=== PATIENT | female | born 1940 | race Caucasian/White ===

== ENCOUNTER 2016-09-14 16:47 | Emergency (ER) | payer OTHER, MEDICARE ==
--- NOTE | 2016-09-14 17:55 | DIAGNOSTIC IMAGING REPORT ---
PROCEDURE: CT HEAD WITHOUT CONTRAST INDICATION: Fall injury with occipital pain. TECHNIQUE: Noncontrast axial images with sagittal and coronal reformations. COMPARISON: Head CT 08/04/2014. FINDINGS: Sulci and ventricular system are normal. Minor white matter chronic ischemic changes. Left occipital scalp contusion. No evidence of acute intracranial process. Visualized mastoids and sinuses are clear. IMPRESSION: 1. Left occipital scalp contusion 2. Minor white matter chronic ischemic changes 3. Findings discussed with Dr. Good at 05:55 p.m., [facility] Time
--- NOTE | 2016-09-14 18:01 | DIAGNOSTIC IMAGING REPORT ---
PROCEDURE: CT CERVICAL SPINE W/O CONTRAST CLINICAL INDICATION: Fall injury. TECHNIQUE: Noncontrast axial images with sagittal and coronal reformations. COMPARISON: None. FINDINGS: Normal alignment without fracture. Moderate multilevel disc vertebral degenerative changes. Mild bilateral C3-4, moderate left C4-5, bilateral C5-6 and C6-7 foraminal stenosis. Mild C5-6 and C6-7 spinal stenosis. Paraspinal soft tissues are unremarkable. IMPRESSION: 1. No acute changes 2. Moderate degenerative changes with spinal and bilateral foraminal stenosis 3. Results discussed with Dr. Good All CT scans at this facility use dose modulation, iterative reconstruction, and/or weight-based dosing when appropriate to reduce radiation dose to as low as reasonably achievable.
--- NOTE | 2016-09-14 19:15 | ED ORDER SUMMARY ---
..... Patient: BECCA SERRA OrderSheet [facility] VisitID: [id number] [place] [address] 76y, F Registration Date/Time: 09/14/2016 ORDER SHEET Weight: 72.5 kg (stated) Allergies: Sulfa Antibiotics GENERAL ORDERS: CT Head wo Cont Urgent (17:30 09/14/2016 Fili ANNA) (Ack 17:32 Zach) (18:11 Mele R.N.) CT Cervical Spine wo Cont Urgent (17:30 09/14/2016 Fili ANNA) (Ack 17:32 Zach) (18:11 Mele R.N.) Cardiac Panel Stat (18:04 09/14/2016 Fili ANNA) (18:05 Zach) MEDICATION ORDERS: Zofran ODT PO 4 mg (NOW) (18:07 09/14/2016 Fili ANNA) (18:15 Mele R.N.) Oxycodone-APAP PO 5/325 mg (NOW) (18:07 09/14/2016 Fili ANNA) (18:15 Mele R.N.) Soma PO 350 mg (NOW) (18:07 09/14/2016 Fili ANNA) (18:16 Mele R.N.) IV FLUIDS: ORDER SHEET NOTES: [Electronically signed by Lianna Mclain R.N. (20:22 09/14/2016)] [Electronically signed by Patricia Carson (20:23 09/14/2016)] [Electronically signed by Jose Good MD (22:02 09/14/2016)] [Electronically locked/signed by Lianna Mclain R.N. (20:22 09/14/2016)]
--- NOTE | 2016-09-14 19:15 | ED NURSING NOTES ---
Clinical Report - Nurses [facility] [place] [address] 09/14/2016 16:52 Patient: BECCA SERRA TRIAGE Triage time 17:00 Sep 14 2016. Chief Complaint: INJURY TO HEAD. Alert. No acute distress. SHAVON COMA SCORE: Shavon Coma Scale: 15- eyes open spontaneously (4); best verbal response- oriented x 4 (5); best motor response- obeys commands (6). --17:12 Lianna Mclain R.N. 17:04 09/14/16. BP: 151/90. HR: 74. RR: 16. O2 saturation: 97%. Temp: 97.5 F. Pain level now: 11/16. --17:12 Lianna Mclain R.N. Weight: 72.5 kg stated. Height/Length: 64 inches Per Patient. BMI: 27.5. --17:10 Lianna Mclain R.N. Medications Oxybutynin Chloride Oral. --17:05 Lianna Mclain R.N. PROzac Oral 40mg, daily. --17:06 Lianna Mclain R.N. Allergy Oral. --17:06 Lianna Mclain R.N. Allergies Sulfa Antibiotics. --17:07 Lianna Mclain R.N. History Arrived by private vehicle. Historian: patient. Accompanied by friend. This occurred (sunday night). Mechanism of injury: fell. The patient had loss of consciousness. She has had a headache and neck pain. ( nausea). 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 Took ibuprofen. (chircopractor). PAST MEDICAL HX: Tetanus status: up-to-date. Immunizations: up-to-date. SOCIAL HX: Never smoker. Regular alcohol use; consumes three beers a week. History of occasional drug use: marijuana. No infectious disease exposure. SELF HARM ASSESSMENT: A self harm assessment was performed. The patient answered "no" to the question "Do you have thoughts of harming or killing yourself?". FALL RISK ASSESSMENT: Fall risk assessment completed. No fall risk identified. NUTRITIONAL RISK ASSESSMENT: The nutritional risk assessment revealed no deficiencies. FUNCTIONAL ASSESSMENT: Functional assessment: no impairments noted. LEARNING NEEDS ASSESSMENT: The learning needs assessment revealed no barriers. ABUSE ASSESSMENT: Abuse assessment: The patient was asked "Do you feel safe in your home?". SKIN INTEGRITY ASSESSMENT: Skin integrity risk assessment completed. No skin integrity risk identified. --17:12 Lianna Mclain R.N. PROBLEMS: Knee Injury. Abnormal Test. Paresthesia. Hypertension. URI. Bronchitis. Asthma. Dyspnea. Pancreatitis. Depression. --17:07 Lianna Mclain R.N. Diverticulitis. --17:08 Lianna Mclain R.N. ADDITIONAL SURGERIES: Breast Augmentation. Hysterectomy. Knee Surgery. --17:07 Lianna Mclain R.N. Colon surgery. Foot surgery. --17:08 Lianna Mclain R.N. Interventions ID band on patient. To room. --17:12 Lianna Mclain R.N. PHYSICAL ASSESSMENT GENERAL / NEURO / PSYCH: Alert. Oriented X 4. Appears in pain. HEENT: Head: tenderness and swelling present in the left occipital area. Occiput: tenderness of the left side of the occiput. No swelling. Pupils equal, round and reactive to light. CVS: Capillary refill less than 2 seconds. BACK: No neck or back tenderness. Limited ROM in the back- (stiffness). SKIN: Skin is warm. --17:14 Lianna Mclain R.N. NURSING PROGRESS NOTES Cold pack applied. Patient gowned. Head of bed elevated. Patient identifiers checked. Call light placed in reach. Side rails up x 1. Bed placed in lowest position. Brakes of bed on. --17:14 Lianna Mclain R.N. 17:44 09/14/2016 Site #1 started via IV in the right antecubital space with an 20g angiocath, with aseptic technique and good blood return; one attempt. Blood drawn: rainbow set. Labeled in the presence of the patient and sent to the lab. --17:44 Lianna Mclain R.N. 17:54 09/14/16. BP: 196/89. HR: 74. RR: 16. O2 saturation: 98%. Pain level now: 8/10. --17:56 Lianna Mclain R.N. 18:15 09/14/2016 Zofran ODT (Ondansetron) PO 4 mg given. Allergies verified and confirmed 5 rights. --18:15 Lianna Mclain R.N. 18:15 09/14/2016 Oxycodone-APAP (Oxycodone-Acetaminophen) PO 5/325 mg Tablets 1 tab given. Allergies verified, confirmed 5 rights and sedative warning given to the patient. --18:15 Lianna Mclain R.N. 18:16 09/14/2016 Soma (Carisoprodol) PO Tablets 350 mg given. Allergies verified, confirmed 5 rights and sedative warning given to the patient. --18:16 Lianna Mclain R.N. DISPOSITION / DISCHARGE 19:20 09/14/16. BP: 170/80. HR: 74. RR: 20. O2 saturation: 98% on room air. Temp: 98.1 F (oral). Pain level now: 0/10. --20:22 Patricia Carson 19:25 09/14/2016 Site #1 removed upon discharge. Catheter intact. Bandaid applied. --20:22 Patricia Carson 19:30 09/14/16. Condition at departure: stable. The goals identified in the patient's plan of care were met. No learning barriers present. Discharge instructions provided and reviewed with the patient. Reviewed warnings (Do not drive while on sedative medications). Reviewed medication(s) side effects, precautions, dosing and course information. Prescription(s) given to the patient. Reviewed need for increased fluid intake. Patient verbalized understanding. Written instructions provided in Lao. ( Follow up with your PCP in one week. Follow head injury precautions as discussed. Return if symptoms worsen. Ice and rest until well. Take an anti-inflammatory as needed to reduce swelling and inflammation. Patient verbalized understanding and had no additional questions at this time.). The patient was discharged by the physician. She was discharged home and accompanied by client relationship executive. She left the Emergency Department ambulatory and via private vehicle. Novelty Dipper driving. FALL RISK ASSESSMENT: Fall risk assessment completed. No fall risk identified. --20:22 Patricia Carson. Locked/Released at 09/14/2016 20:23 by Lianna Mclain R.N.
--- NOTE | 2016-09-14 19:15 | ED NURSING NOTES ---
Clinical Report - Nurses [facility] [place] [address] 09/14/2016 16:52 Patient: BECCA SERRA TRIAGE Triage time 17:00 Sep 14 2016. Chief Complaint: INJURY TO HEAD. Alert. No acute distress. SHAVON COMA SCORE: Shavon Coma Scale: 15- eyes open spontaneously (4); best verbal response- oriented x 4 (5); best motor response- obeys commands (6). --17:12 Lianna Mclain R.N. 17:04 09/14/16. BP: 151/90. HR: 74. RR: 16. O2 saturation: 97%. Temp: 97.5 F. Pain level now: 11/16. --17:12 Lianna Mclain R.N. Weight: 72.5 kg stated. Height/Length: 64 inches Per Patient. BMI: 27.5. --17:10 Lianna Mclain R.N. Medications Oxybutynin Chloride Oral. --17:05 Lianna Mclain R.N. PROzac Oral 40mg, daily. --17:06 Lianna Mclain R.N. Allergy Oral. --17:06 Lianna Mclain R.N. Allergies Sulfa Antibiotics. --17:07 Lianna Mclain R.N. History Arrived by private vehicle. Historian: patient. Accompanied by friend. This occurred (sunday night). Mechanism of injury: fell. The patient had loss of consciousness. She has had a headache and neck pain. ( nausea). 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 Took ibuprofen. (chircopractor). PAST MEDICAL HX: Tetanus status: up-to-date. Immunizations: up-to-date. SOCIAL HX: Never smoker. Regular alcohol use; consumes three beers a week. History of occasional drug use: marijuana. No infectious disease exposure. SELF HARM ASSESSMENT: A self harm assessment was performed. The patient answered "no" to the question "Do you have thoughts of harming or killing yourself?". FALL RISK ASSESSMENT: Fall risk assessment completed. No fall risk identified. NUTRITIONAL RISK ASSESSMENT: The nutritional risk assessment revealed no deficiencies. FUNCTIONAL ASSESSMENT: Functional assessment: no impairments noted. LEARNING NEEDS ASSESSMENT: The learning needs assessment revealed no barriers. ABUSE ASSESSMENT: Abuse assessment: The patient was asked "Do you feel safe in your home?". SKIN INTEGRITY ASSESSMENT: Skin integrity risk assessment completed. No skin integrity risk identified. --17:12 Lianna Mclain R.N. PROBLEMS: Knee Injury. Abnormal Test. Paresthesia. Hypertension. URI. Bronchitis. Asthma. Dyspnea. Pancreatitis. Depression. --17:07 Lianna Mclain R.N. Diverticulitis. --17:08 Lianna Mclain R.N. ADDITIONAL SURGERIES: Breast Augmentation. Hysterectomy. Knee Surgery. --17:07 Lianna Mclain R.N. Colon surgery. Foot surgery. --17:08 Lianna Mclain R.N. Interventions ID band on patient. To room. --17:12 Lianna Mclain R.N. PHYSICAL ASSESSMENT GENERAL / NEURO / PSYCH: Alert. Oriented X 4. Appears in pain. HEENT: Head: tenderness and swelling present in the left occipital area. Occiput: tenderness of the left side of the occiput. No swelling. Pupils equal, round and reactive to light. CVS: Capillary refill less than 2 seconds. BACK: No neck or back tenderness. Limited ROM in the back- (stiffness). SKIN: Skin is warm. --17:14 Lianna Mclain R.N. NURSING PROGRESS NOTES Cold pack applied. Patient gowned. Head of bed elevated. Patient identifiers checked. Call light placed in reach. Side rails up x 1. Bed placed in lowest position. Brakes of bed on. --17:14 Lianna Mclain R.N. 17:44 09/14/2016 Site #1 started via IV in the right antecubital space with an 20g angiocath, with aseptic technique and good blood return; one attempt. Blood drawn: rainbow set. Labeled in the presence of the patient and sent to the lab. --17:44 Lianna Mclain R.N. 17:54 09/14/16. BP: 196/89. HR: 74. RR: 16. O2 saturation: 98%. Pain level now: 8/10. --17:56 Lianna Mclain R.N. 18:15 09/14/2016 Zofran ODT (Ondansetron) PO 4 mg given. Allergies verified and confirmed 5 rights. --18:15 Lianna Mclain R.N. 18:15 09/14/2016 Oxycodone-APAP (Oxycodone-Acetaminophen) PO 5/325 mg Tablets 1 tab given. Allergies verified, confirmed 5 rights and sedative warning given to the patient. --18:15 Lianna Mclain R.N. 18:16 09/14/2016 Soma (Carisoprodol) PO Tablets 350 mg given. Allergies verified, confirmed 5 rights and sedative warning given to the patient. --18:16 Lianna Mclain R.N. DISPOSITION / DISCHARGE 19:20 09/14/16. BP: 170/80. HR: 74. RR: 20. O2 saturation: 98% on room air. Temp: 98.1 F (oral). Pain level now: 0/10. --20:22 Patricia Carson 19:25 09/14/2016 Site #1 removed upon discharge. Catheter intact. Bandaid applied. --20:22 Patricia Carson 19:30 09/14/16. Condition at departure: stable. The goals identified in the patient's plan of care were met. No learning barriers present. Discharge instructions provided and reviewed with the patient. Reviewed warnings (Do not drive while on sedative medications). Reviewed medication(s) side effects, precautions, dosing and course information. Prescription(s) given to the patient. Reviewed need for increased fluid intake. Patient verbalized understanding. Written instructions provided in Lebanese. ( Follow up with your PCP in one week. Follow head injury precautions as discussed. Return if symptoms worsen. Ice and rest until well. Take an anti-inflammatory as needed to reduce swelling and inflammation. Patient verbalized understanding and had no additional questions at this time.). The patient was discharged by the physician. She was discharged home and accompanied by fire fighters dispatcher. She left the Emergency Department ambulatory and via private vehicle. Csw driving. FALL RISK ASSESSMENT: Fall risk assessment completed. No fall risk identified. --20:22 Patricia Carson. Locked/Released at 09/14/2016 20:23 by Lianna Mclain R.N.
--- NOTE | 2016-09-14 19:15 | ED ORDER SUMMARY ---
..... Patient: BECCA SERRA OrderSheet [facility] VisitID: [id number] [place] [address] 76y, F Registration Date/Time: 09/14/2016 ORDER SHEET Weight: 72.5 kg (stated) Allergies: Sulfa Antibiotics GENERAL ORDERS: CT Head wo Cont Urgent (17:30 09/14/2016 Fili ANNA) (Ack 17:32 Zach) (18:11 Mele R.N.) CT Cervical Spine wo Cont Urgent (17:30 09/14/2016 Fili ANNA) (Ack 17:32 Zach) (18:11 Mele R.N.) Cardiac Panel Stat (18:04 09/14/2016 Fili ANNA) (18:05 Zach) MEDICATION ORDERS: Zofran ODT PO 4 mg (NOW) (18:07 09/14/2016 Fili ANNA) (18:15 Mele R.N.) Oxycodone-APAP PO 5/325 mg (NOW) (18:07 09/14/2016 Fili ANNA) (18:15 Mele R.N.) Soma PO 350 mg (NOW) (18:07 09/14/2016 Fili ANNA) (18:16 Mele R.N.) IV FLUIDS: ORDER SHEET NOTES: [Electronically signed by Lianna Mclain R.N. (20:22 09/14/2016)] [Electronically signed by Patricia Carson (20:23 09/14/2016)] [Electronically signed by Jose Good MD (22:02 09/14/2016)] [Electronically locked/signed by Lianna Mclain R.N. (20:22 09/14/2016)]
--- NOTE | 2016-09-14 19:15 | ED CLINICAL REPORT ---
Clinical Report - Physicians/Mid Levels [facility] [address] [place] [address] 09/14/2016 16:52 Patient: BECCA SERRA Time Seen: 17:00 Sep 14 2016. Arrived- By private vehicle. Historian- patient. CPT: ER phys charges level 4 (#[id number]). HISTORY OF PRESENT ILLNESS Location of injuries- head and neck. Chief Complaint: INJURY TO HEAD and INJURY TO NECK. 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 Fell down 2 stairs while walking and landed on a wood surface; tripped (walking in the dark). Occurred at home. The patient complains of moderate pain. The patient sustained a blow to the head, complains of neck pain and had loss of consciousness. REVIEW OF SYSTEMS No seizure, numbness, chest pain, difficulty breathing or laceration. No fever. All systems otherwise negative, except as recorded above. PAST HISTORY See nurses notes. Knee Injury. Abnormal Test. Paresthesia. Hypertension. URI. Bronchitis. Asthma. Dyspnea. Pancreatitis. Depression. --17:07 Lianna Mclain R.N. Diverticulitis. --17:08 Lianna Mclain R.N. ADDITIONAL SURGERIES: Breast Augmentation. Hysterectomy. Knee Surgery. --17:07 Lianna Mclain R.N. Colon surgery. Foot surgery. Medications: Allergy Oral. PROzac Oral 40mg, daily. Oxybutynin Chloride Oral. Allergies: Sulfa Antibiotics. SOCIAL HISTORY Regular alcohol use. History of drug use: marijuana. ADDITIONAL NOTES The nursing notes have been reviewed. PHYSICAL EXAM Vital Signs: 09/14/2016 17:04 BP: 151/90. HR: 74. RR: 16. O2 saturation: 97%. Temp: 97.5 F. Pain level now: 8/10. Appearance: Alert. Patient in mild distress. Head: Vertex: mild tenderness and swelling and small abrasion of the left posterior aspect of the vertex. Eyes: Pupils equal, round and reactive to light. EOM intact. ENT: No dental injury. Pharynx normal. Neck: Decrease in ROM. Mild vertebral tenderness of the mid cervical spine. No palpable step-off. CVS: Normal heart rate and rhythm. Heart sounds normal. Pulses normal. Respiratory: Breath sounds normal. Chest nontender. Abdomen: Soft and nontender. Back: No tenderness. Skin: Skin intact. Skin warm. Normal skin color. Extremities: Extremities atraumatic. Neuro: Oriented X 3. Mood/affect normal. Speech normal. No motor deficit. Normal gait. No sensory deficit. Reflexes normal. LABS, X-RAYS, AND EKG CT C-Spine: No acute findings. Degenerative joint disease. The study was independently viewed by me and interpreted by the radiologist. CT Head: No acute disease. Laboratory Tests: CBC w Diff: (TAZ: 09/14/2016 17:20) ( [facility] 09/14/2016 18:19) Final results Test Result Flag Units (Reference) WHITE BLOOD COUNT 5.8 K/uL (4.5-11.5) RED BLOOD COUNT 4.26 M/uL (4.00-5.20) HEMOGLOBIN 13.1 gm/dL (12.0-16.0) HEMATOCRIT 39.2 % (36.0-46.0) MEAN CELL VOLUME 92 fL (80-100) MEAN CORPUSCULAR HGB 31 pg (26-34) MEAN CORPUSCULAR HGB CONC 33 g/dL (31-37) RED CELL DISTRIBUTION WIDTH 15.2 H % (11.6-14.8) PLATELET COUNT 323 K/uL (150-400) NEUTROPHIL % 59.8 % (50-75) LYMPH % 29.9 % (25-40) MONO % 8.2 % (3-14) EOSINOPHIL % 1.7 % (0-4) BASOPHIL % 0.4 % (0-2) CHEM 13 PANEL: (TAZ: 09/14/2016 17:20) ( MsgRcvd 09/14/2016 18:38) Final results Test Result Flag Units (Reference) GLUCOSE 102 mg/dL (70-110) BUN 20 H mg/dL (7-18) CREATININE 0.9 mg/dL (0.6-1.3) Estimated GFR >60 mL/min Estimated GFR- >60 mL/min Note: Persistent reduction over 3 months in eGFR<60 mL/min/1.73 m2 defines CKD. Patients with eGFR values>=60 mL/min/1.73 m2 may also have CKD if evidence ofpersistent proteinuria. Additional information may be foundat www.kidney.org. SODIUM 140 mmol/L (136-145) POTASSIUM 3.9 mmol/L (3.5-5.1) CHLORIDE 104 mmol/L (98-107) CARBON DIOXIDE 26 mmol/L (21-32) CALCIUM 9.1 mg/dL (8.5-10.1) TOTAL PROTEIN 7.2 g/dL (6.4-8.2) ALBUMIN 3.3 g/dL (3.3-5.0) BILIRUBIN, TOTAL 0.2 mg/dL (0.0-1.0) ALKALINE PHOSPHATASE 91 U/L (46-116) AST (SGOT) 22 U/L (15-37) ALT (SGPT) 25 U/L (12-78) MAGNESIUM 2.1 mg/dL (1.8-2.4) CPK 92 U/L (24-260) TROPONIN I <0.05 ng/mL (0.00-1.5) TROPONIN REFERENCE RANGE:<0.1 NEGATIVE0.1-1.5 INDETERMINANT>1.5 POSITIVE . PROGRESS AND PROCEDURES Patient/family counseled. Disposition: Discharged. Condition: stable. CLINICAL IMPRESSION Single contusion with soft tissue hematoma and abrasion to the head. Fall from stairs and on same level by tripping. Concussion. Loss of consciousness of unknown duration. INSTRUCTIONS No strenuous activity. Warnings: SEDATIVE MEDICATION: You were given sedative medication during your visit. Do not drive or operate dangerous machinery. GENERAL WARNINGS: Return or contact your physician immediately if your condition worsens or changes unexpectedly, if not improving as expected, or if other problems arise. Prescription Medications: Zofran (orally disintegrating tablets) 4 mg: take 1 orally every 6 hours as needed for nausea. Dispense ten (10). No refill. Soma 350 mg: Take 1 orally every 6 hours as needed for muscle spasm. Dispense twenty (20). No refills. Substitution is permissible. Oxycodone/APAP 5 mg/325 mg: take 1 tablet orally every 6 hours as needed for pain. Dispense fifteen (15). No refills. Follow-up: Follow up with your doctor in one week. Call for an appointment. Understanding of the discharge instructions verbalized by patient and family. (Electronically signed by Jose Good MD 09/14/2016 22:02)
--- NOTE | 2016-09-14 22:02 | ED DISCHARGE INSTRUCTIONS ---
Patient: BECCA SERRA General Instructions [facility] VisitID: [id number] [place] [address] 76y, F Registration Date/Time: 09/14/2016 Single contusion with soft tissue hematoma and abrasion to the head. Fall from stairs and on same level by tripping. Concussion. Loss of consciousness of unknown duration. INSTRUCTIONS No strenuous activity. Warnings: SEDATIVE MEDICATION: You were given sedative medication during your visit. Do not drive or operate dangerous machinery. GENERAL WARNINGS: Return or contact your physician immediately if your condition worsens or changes unexpectedly, if not improving as expected, or if other problems arise. Prescription Medications: Zofran (orally disintegrating tablets) 4 mg: take 1 orally every 6 hours as needed for nausea. Dispense ten (10). No refill. Soma 350 mg: Take 1 orally every 6 hours as needed for muscle spasm. Dispense twenty (20). No refills. Substitution is permissible. Oxycodone/APAP 5 mg/325 mg: take 1 tablet orally every 6 hours as needed for pain. Dispense fifteen (15). No refills. Follow-up: Follow up with your doctor in one week. Call for an appointment. Understanding of the discharge instructions verbalized by patient and family. ADDITIONAL INFORMATION Mechanical Fall You have had a fall today. It appears that the cause is mechanical. That means that you slipped, tripped or lost your balance. If your fall had been due to fainting or a seizure, further tests would be required. Home Care: Rest today and resume your normal activities when you are feeling back to normal. If you were injured during the fall, follow the advice from your doctor regarding care of your injury. You may use acetaminophen (Tylenol) or ibuprofen (Motrin, Advil) to control pain, unless another pain medicine was prescribed. [NOTE: If you have chronic liver or kidney disease or ever had a stomach ulcer or GI bleeding, talk with your doctor before using these medicines.] Fall Prevention: Was there anything that caused your fall that can be fixed, removed, or replaced? Make your home safe by keeping walkways clear of objects you may trip over. Use non-slip pads under rugs. Do not walk in poorly lit areas. Do not stand on chairs or wobbly ladders. Use caution when reaching overhead or looking upward. This position can cause a loss of balance. Be sure your shoes fit properly, have non-slip bottoms and are in good condition. Be cautious when going up and down curbs, and walking on uneven sidewalks. If your balance is poor, consider using a cane or walker. Stay as active as you can. Balance, flexibility, strength, and endurance all come from exercise. They all play a role in preventing falls. Follow Up with your doctor or as advised by our staff. Get Prompt Medical Attention if any of the following occur: Repeated mechanical falls, or unexplained falls Dizziness, fainting or seizure Severe headache Chest pain or shortness of breath Palpitations (very rapid or very slow or irregular heartbeat) Blood in vomit, stools (black or red color) Weakness of an arm or leg or one side of the face Difficulty with speech or vision Ondansetron Oral disintegrating tablet What is this medicine? ONDANSETRON (on WILMAR se kelsey) is used to treat nausea and vomiting caused by chemotherapy. It is also used to prevent or treat nausea and vomiting after surgery. How should I use this medicine? These tablets are made to dissolve in the mouth. Do not try to push the tablet through the foil backing. With dry hands, peel away the foil backing and gently remove the tablet. Place the tablet in the mouth and allow it to dissolve, then swallow. While you may take these tablets with water, it is not necessary to do so. Talk to your dental office coordinator regarding the use of this medicine in children. Special care may be needed. What side effects may I notice from receiving this medicine? Side effects that you should report to your doctor or health live in caregiver as soon as possible: allergic reactions like skin rash, itching or hives, swelling of the face, lips, or tongue breathing problems dizziness fast or irregular heartbeat feeling faint or lightheaded, falls fever and chills swelling of the hands and feet tightness in the chest Side effects that usually do not require medical attention (report to your doctor or health live in caregiver if they continue or are bothersome): constipation or diarrhea headache What may interact with this medicine? Do not take this medicine with any of the following medications: -apomorphine -cisapride -dofetilide -dronedarone -pimozide -thioridazine -ziprasidone This medicine may also interact with the following medications: -carbamazepine -phenytoin -rifampicin -tramadol -other medicines that prolong the QT interval (cause an abnormal heart rhythm) What if I miss a dose? If you miss a dose, take it as soon as you can. If it is almost time for your next dose, take only that dose. Do not take double or extra doses. Where should I keep my medicine? Keep out of the reach of children. Store between 2 and 30 degrees C (36 and 86 degrees F). Throw away any unused medicine after the expiration date. What should I tell my health care provider before I take this medicine? They need to know if you have any of these conditions: heart disease history of irregular heartbeat liver disease low levels of magnesium or potassium in the blood an unusual or allergic reaction to ondansetron, granisetron, other medicines, foods, dyes, or preservatives or trying to get breast-feeding What should I watch for while using this medicine? Check with your doctor or health live in caregiver as soon as you can if you have any sign of an allergic reaction. You have been given the following additional information: Fall, Mechanical Ondansetron Oral disintegrating tablet No strenuous activity. (Electronically signed by Jose Good MD 09/14/2016 22:02)
--- NOTE | 2016-09-14 22:02 | ED MAR SUMMARY ---
..... Medication Administration Record [facility] [address] [place] [address] Patient: BECCA SERRA Visit ID: [id number] 76y, F Weight: 72.5 kg Height/Length: 64 in BMI: 27.5 ALLERGIES: Sulfa Antibiotics Given 18:15 09/14/2016 Lianna Mclain RJoanaNJoana Medication Administered: ZOFRAN ODT [PO] (ONDANSETRON), Dose: 4 mg PO. Medication Ordered: Zofran ODT PO 4 mg (NOW). Given 18:15 09/14/2016 Lianna Mclain R.NJoana Medication Administered: OXYCODONE-APAP [PO] (OXYCODONE-ACETAMINOPHEN), Dose: 1 tab 5/325 mg Tablets PO. Medication Ordered: Oxycodone-APAP PO 5/325 mg (NOW). Given 18:16 09/14/2016 Lianna Mclain, RJoanaNJoana Medication Administered: SOMA [PO] (CARISOPRODOL), Dose: 350 mg Tablets PO. Medication Ordered: Soma PO 350 mg (NOW).
--- NOTE | 2016-09-14 22:02 | ED MAR SUMMARY ---
..... Medication Administration Record [facility] [address] [place] [address] Patient: BECCA SERRA Visit ID: [id number] 76y, F Weight: 72.5 kg Height/Length: 64 in BMI: 27.5 ALLERGIES: Sulfa Antibiotics Given 18:15 09/14/2016 Lianna Mclain RJoanaNJoana Medication Administered: ZOFRAN ODT [PO] (ONDANSETRON), Dose: 4 mg PO. Medication Ordered: Zofran ODT PO 4 mg (NOW). Given 18:15 09/14/2016 Lianna Mclain R.NJoana Medication Administered: OXYCODONE-APAP [PO] (OXYCODONE-ACETAMINOPHEN), Dose: 1 tab 5/325 mg Tablets PO. Medication Ordered: Oxycodone-APAP PO 5/325 mg (NOW). Given 18:16 09/14/2016 Lianna Mclain, RJoanaNJoana Medication Administered: SOMA [PO] (CARISOPRODOL), Dose: 350 mg Tablets PO. Medication Ordered: Soma PO 350 mg (NOW).
--- NOTE | 2016-09-14 22:02 | ED MED RECONCILIATION SUMMARY ---
Patient: BECCA SERRA Medication Reconciliation Report [facility] VisitID: [id number] [place] [address] 76y, F Registration Date/Time: 09/14/2016 Weight: 72.5 kg Height/Length: 64 in. BMI: 27.5 ALLERGIES: Sulfa Antibiotics The patient's Home Medications are listed below: THE FOLLOWING MEDICATIONS NEED TO BE RECONCILED: Allergy Oral Oxybutynin Chloride Oral PROzac Oral 40mg, daily The source(s) of the original Home Medication information: Not obtained. The following Medications were given to the patient in the Emergency Department: Zofran ODT [PO] PO 4 mg, administered: 09/14/2016 6:15:00 PM Oxycodone-APAP [PO] PO 1 tab, administered: 09/14/2016 6:15:00 PM Soma [PO] PO 350 mg, administered: 09/14/2016 6:16:00 PM The following Medications were prescribed to the patient: Zofran (orally disintegrating tablets) 4 mg: take 1 orally every 6 hours as needed for nausea. Dispense ten (10). No refill. -- Jose Good MD Soma 350 mg: Take 1 orally every 6 hours as needed for muscle spasm. Dispense twenty (20). No refills. Substitution is permissible. -- Jose Good MD Oxycodone/APAP 5 mg/325 mg: take 1 tablet orally every 6 hours as needed for pain. Dispense fifteen (15). No refills. -- Jose Good MD
--- NOTE | 2016-09-14 22:02 | ED MED RECONCILIATION SUMMARY ---
Patient: BECCA SERRA Medication Reconciliation Report [facility] VisitID: [id number] [place] [address] 76y, F Registration Date/Time: 09/14/2016 Weight: 72.5 kg Height/Length: 64 in. BMI: 27.5 ALLERGIES: Sulfa Antibiotics The patient's Home Medications are listed below: THE FOLLOWING MEDICATIONS NEED TO BE RECONCILED: Allergy Oral Oxybutynin Chloride Oral PROzac Oral 40mg, daily The source(s) of the original Home Medication information: Not obtained. The following Medications were given to the patient in the Emergency Department: Zofran ODT [PO] PO 4 mg, administered: 09/14/2016 6:15:00 PM Oxycodone-APAP [PO] PO 1 tab, administered: 09/14/2016 6:15:00 PM Soma [PO] PO 350 mg, administered: 09/14/2016 6:16:00 PM The following Medications were prescribed to the patient: Zofran (orally disintegrating tablets) 4 mg: take 1 orally every 6 hours as needed for nausea. Dispense ten (10). No refill. -- Jose Good MD Soma 350 mg: Take 1 orally every 6 hours as needed for muscle spasm. Dispense twenty (20). No refills. Substitution is permissible. -- Jose Good MD Oxycodone/APAP 5 mg/325 mg: take 1 tablet orally every 6 hours as needed for pain. Dispense fifteen (15). No refills. -- Jose Good MD
--- NOTE | 2016-09-14 22:02 | ED DISCHARGE INSTRUCTIONS ---
Patient: BECCA SERRA General Instructions [facility] VisitID: [id number] [place] [address] 76y, F Registration Date/Time: 09/14/2016 Single contusion with soft tissue hematoma and abrasion to the head. Fall from stairs and on same level by tripping. Concussion. Loss of consciousness of unknown duration. INSTRUCTIONS No strenuous activity. Warnings: SEDATIVE MEDICATION: You were given sedative medication during your visit. Do not drive or operate dangerous machinery. GENERAL WARNINGS: Return or contact your physician immediately if your condition worsens or changes unexpectedly, if not improving as expected, or if other problems arise. Prescription Medications: Zofran (orally disintegrating tablets) 4 mg: take 1 orally every 6 hours as needed for nausea. Dispense ten (10). No refill. Soma 350 mg: Take 1 orally every 6 hours as needed for muscle spasm. Dispense twenty (20). No refills. Substitution is permissible. Oxycodone/APAP 5 mg/325 mg: take 1 tablet orally every 6 hours as needed for pain. Dispense fifteen (15). No refills. Follow-up: Follow up with your doctor in one week. Call for an appointment. Understanding of the discharge instructions verbalized by patient and family. ADDITIONAL INFORMATION Mechanical Fall You have had a fall today. It appears that the cause is mechanical. That means that you slipped, tripped or lost your balance. If your fall had been due to fainting or a seizure, further tests would be required. Home Care: Rest today and resume your normal activities when you are feeling back to normal. If you were injured during the fall, follow the advice from your doctor regarding care of your injury. You may use acetaminophen (Tylenol) or ibuprofen (Motrin, Advil) to control pain, unless another pain medicine was prescribed. [NOTE: If you have chronic liver or kidney disease or ever had a stomach ulcer or GI bleeding, talk with your doctor before using these medicines.] Fall Prevention: Was there anything that caused your fall that can be fixed, removed, or replaced? Make your home safe by keeping walkways clear of objects you may trip over. Use non-slip pads under rugs. Do not walk in poorly lit areas. Do not stand on chairs or wobbly ladders. Use caution when reaching overhead or looking upward. This position can cause a loss of balance. Be sure your shoes fit properly, have non-slip bottoms and are in good condition. Be cautious when going up and down curbs, and walking on uneven sidewalks. If your balance is poor, consider using a cane or walker. Stay as active as you can. Balance, flexibility, strength, and endurance all come from exercise. They all play a role in preventing falls. Follow Up with your doctor or as advised by our staff. Get Prompt Medical Attention if any of the following occur: Repeated mechanical falls, or unexplained falls Dizziness, fainting or seizure Severe headache Chest pain or shortness of breath Palpitations (very rapid or very slow or irregular heartbeat) Blood in vomit, stools (black or red color) Weakness of an arm or leg or one side of the face Difficulty with speech or vision Ondansetron Oral disintegrating tablet What is this medicine? ONDANSETRON (on WILMAR se kelsey) is used to treat nausea and vomiting caused by chemotherapy. It is also used to prevent or treat nausea and vomiting after surgery. How should I use this medicine? These tablets are made to dissolve in the mouth. Do not try to push the tablet through the foil backing. With dry hands, peel away the foil backing and gently remove the tablet. Place the tablet in the mouth and allow it to dissolve, then swallow. While you may take these tablets with water, it is not necessary to do so. Talk to your construction quality control manager regarding the use of this medicine in children. Special care may be needed. What side effects may I notice from receiving this medicine? Side effects that you should report to your doctor or health rental boats caretaker as soon as possible: allergic reactions like skin rash, itching or hives, swelling of the face, lips, or tongue breathing problems dizziness fast or irregular heartbeat feeling faint or lightheaded, falls fever and chills swelling of the hands and feet tightness in the chest Side effects that usually do not require medical attention (report to your doctor or health rental boats caretaker if they continue or are bothersome): constipation or diarrhea headache What may interact with this medicine? Do not take this medicine with any of the following medications: -apomorphine -cisapride -dofetilide -dronedarone -pimozide -thioridazine -ziprasidone This medicine may also interact with the following medications: -carbamazepine -phenytoin -rifampicin -tramadol -other medicines that prolong the QT interval (cause an abnormal heart rhythm) What if I miss a dose? If you miss a dose, take it as soon as you can. If it is almost time for your next dose, take only that dose. Do not take double or extra doses. Where should I keep my medicine? Keep out of the reach of children. Store between 2 and 30 degrees C (36 and 86 degrees F). Throw away any unused medicine after the expiration date. What should I tell my health care provider before I take this medicine? They need to know if you have any of these conditions: heart disease history of irregular heartbeat liver disease low levels of magnesium or potassium in the blood an unusual or allergic reaction to ondansetron, granisetron, other medicines, foods, dyes, or preservatives or trying to get breast-feeding What should I watch for while using this medicine? Check with your doctor or health rental boats caretaker as soon as you can if you have any sign of an allergic reaction. You have been given the following additional information: Fall, Mechanical Ondansetron Oral disintegrating tablet No strenuous activity. (Electronically signed by Jose Good MD 09/14/2016 22:02)
== END 2016-09-14 19:30 | disposition home or self-care (01) ==
LOC: ED SRH 16:47
DX: S06.0X9A Concussion with loss of consciousness of unspecified duration, initial encounter (principal); Z88.1 Allergy status to other antibiotic agents; S00.93XA Contusion of unspecified part of head, initial encounter; S00.91XA Abrasion of unspecified part of head, initial encounter; W10.9XXA Fall (on) (from) unspecified stairs and steps, initial encounter; Y93.01 Activity, walking, marching and hiking; Y92.019 Unspecified place in single-family (private) house as the place of occurrence of the external cause; Y99.8 Other external cause status; I10 Essential (primary) hypertension; Z79.899 Other long term (current) drug therapy
CPT/HCPCS: 90100; 90616; 92610; 92720; 95059